=== PATIENT | male | born 1990 | race Caucasian/White ===

== ENCOUNTER 2021-01-12 08:33 | Emergency (ER) | payer OTHER ==
[~2021-01-12] VITALS: Ht 170.2 cm; Wt 72.6 kg
[2021-01-12 09:08] LABS: URINE BILIRUBIN NEGATIVE (Negative); URINE BLOOD NEGATIVE (Negative); URINE CLARITY CLEAR; URINE COLOR YELLOW; URINE GLUCOSE-RANDOM* NEGATIVE (Negative); URINE KETONES NEGATIVE (Negative); URINE LEUKOCYTES-REFLEX NEGATIVE (Negative); URINE NITRITE-REFLEX NEGATIVE (Negative); URINE PROTEIN (DIPSTICK) NEGATIVE (Negative); URINE SPECIFIC GRAVITY >= 1.030 (1.005-1.035)
[2021-01-12] MEDS ORDERED: PROTONIX40 M2 PO (09:19)
[2021-01-12 09:20] LABS: ABSOLUTE NEUTROPHILS 4.1 thou/uL (1.4-8.2); BASOPHILS 0.6 % (0.0-2.0); EOSINOPHILS 2.7 % (0.0-3.0); HEMATOCRIT 41.1 % (42.0-52.0); HEMOGLOBIN 14.4 gm/dL (14.0-18.0); LYMPHOCYTES 41.5 % (24.0-44.0); MCH 31.3 pg (26.0-34.0); MCV 89.5 fL (80.0-100.0); MONOCYTES 7.2 % (1.0-8.0); PLATELET COUNT 258 thou/uL (150-400); RBC 4.59 mil/uL (4.50-6.00); RDW 12.8 % (10.5-14.5); WBC 8.6 thou/uL (4.0-11.0)
[2021-01-12 09:29] LABS: CALCIUM 9.3 mg/dL (8.5-10.1); CREATININE 1.2 mg/dL (0.7-1.3); POTASSIUM 3.5 mmol/L (3.5-5.1)
[2021-01-12 09:35] LABS: ALBUMIN 4.1 g/dL (3.4-5.0); TOTAL BILIRUBIN 0.4 mg/dL (0.2-1.0); TOTAL PROTEIN 7.3 g/dL (6.4-8.2)
[2021-01-12] MEDS ORDERED: NEXIUM40 MG PO ×2 (12:04→12:05)
[2021-01-12] MEDS ORDERED: ZOFRAN ODT4 MG PO ×2 (12:04→12:05)
[2021-01-12 12:29] VITALS: BP 154/89
== END 2021-01-12 12:30 | disposition home or self-care (01) ==
LOC: ER 08:33
PROVIDERS: Emergency Medicine
DX: R10.13 Epigastric pain (principal); Z98.890 Other specified postprocedural states; Z79.899 Other long term (current) drug therapy